=== PATIENT | female | born 1955 | race Caucasian/White ===

== ENCOUNTER 2020-05-26 18:31 | Emergency (ER) | payer OTHER, SELFPAY ==
--- NOTE | ~2020-05-26 | XR_ITS ---
EXAMINATION: XR knee RT min 4V EXAM DATE: 05/26/2020 19:17 INDICATION: right knee/patella pain, swelling s/p fall . Initial encounter. TECHNIQUE: Right knee frontal, crosstable lateral, orthogonal oblique projections for interpretation . [place] projection. There are no prior studies for comparison. FINDINGS: There is a moderate-sized right knee joint effusion. No definite lipomatous component to th is. There is large amount of swelling anterior aspect of the knee. No acute fracture line identified. There is mild patellofemoral compartment primary osteoarthritis. No radiopaque foreign bodies identi fied. IMPRESSION: Moderate right knee joint effusion without acute fracture line identified. Reviewed, dictated and finalized at location A. ANALYST IMPRESSION: Moderate right knee joint effusion without acute fracture line louis ntified.
[2020-05-26 18:58] VITALS: BP 163/60; PULSE 66; RESP 14; TEMP 36.5; O2SAT 97
[2020-05-26] MEDS: KETOROLAC (*BKC) 60 MG/2 ML VIAL IM (19:15)
--- NOTE | 2020-05-26 20:11 | ED.LOWEXIN ---
HPI - Extremity Injury (Lower) General Chief Complaint: Extremity Injury, Lower Stated Complaint: (both)Leg pain Time Seen by Provider: 05/26/20 19:00 Source: patient Mode of arrival: ambulatory Limitations: no limitations History of Present Illness HPI Narrative: Patient comes in after a fall on her knees. She has swelling to right knee, much greater than on left knee. Right knee appears bruised, and swollen. Pain is moderately severe and ongoing. Related Data Home Medications Medication Instructions Recorded Confirmed amlodipine 10 mg PO DAILY 05/26/20 05/26/20 atenolol 100 mg PO DAILY 05/26/20 05/26/20 atorvastatin 80 mg PO DAILY 05/26/20 05/26/20 losartan 100 mg PO DAILY 05/26/20 05/26/20 metformin 500 mg PO BID 05/26/20 05/26/20 Allergies Allergy/AdvReac Type Severity Reaction Status Date / Time Penicillins Allergy Unknown Verified 05/26/20 19:05 Review of Systems Constitutional: Constitutional: Reports no additional constitutional complaints Eyes: Eyes: Reports no additional eye complaints ENT: Reports system reviewed and no additional complaints, except as documented Cardiovascular: Cardiovascular: Reports no additional cardiovascular complaints Respiratory: Respiratory: Reports no additional respiratory complaints Gastrointestinal: Gastrointestinal: Reports no additional gastrointestinal complaints Genitourinary: Genitourinary: Reports no additional female genitourinary complaints Musculoskeletal: Musculoskeletal: Reports no additional musculoskeletal complaints Integumentary/Breasts: Skin/Breast: Reports system reviewed and no additional complaints, except as docu Neurologic: Reports system reviewed and no additional complaints, except as documented Psychiatric: Psychiatric: Reports no additional psychiatric complaints Endocrine: Endocrine: Reports no additional endocrine complaints Hematologic/Lymphatic: Hematologic/Lymphatic: Reports no additional hematologic/lymphatic complaints Allergic/Immunologic: Allergic/Immunologic: Reports no additional allergic/immunologic complaints PMFSH Past Medical History Medical History (Updated 05/27/20 @ 01:11 by Ignacio Burr MD) Diabetes HTN (hypertension) Hyperlipemia Exam Const: General: no acute distress Nutritional Appearance: well nourished Orientation/consciousness: patient oriented x3 HENMT: Head: normal to inspection Ears: TM abnormal Face and sinus: normal facial exam Eyes: General: appearance normal, both eyes and all related structures Conjunctivae: conjunctivae normal Neck: Neck: normal visual inspection Chest: Chest palpation & inspection: normal inspection of the chest Resp: Effort & Inspection: normal respiratory effort Cardio: Rate: regular rate Rhythm: regular rhythm Back/Spine/Pelvis: Back: no CVA tenderness Skin: General skin exam: normal color Neuro: General: patient oriented x3 and moves all extremities Extrem: General: normal to inspection Psych: Appearance: grossly normal Mental Status: mental status grossly normal Thought content: Yes Normal thought content present Course Course Emergency Course: She appears improved after ketorolac 60mg IM. Reviewed x ray with her. Vital Signs Vital signs: Vital Signs Temperature 36.5 C 05/26/20 18:58 Pulse Rate 66 05/26/20 18:58 Respiratory Rate 14 05/26/20 18:58 Blood Pressure 163/60 H 05/26/20 18:58 Pulse Oximetry 97 05/26/20 18:58 Temperature 36.5 C 05/26/20 18:58 Pulse Rate 66 05/26/20 18:58 Respiratory Rate 14 05/26/20 18:58 Blood Pressure 163/60 H 05/26/20 18:58 Pulse Oximetry 96 05/26/20 20:30 Discharge Plan Discharge Clinical Impression: Acute knee pain Patient Disposition: Home, Self-Care Condition: Stable Instructions: Antibiotic Form, Abrasion (ED) Additional Instructions: Follow up with primary care physician in a few days Prescriptions: New mupirocin 2 % ointment 1 caitie
[2020-05-26 20:30] VITALS: O2SAT 96
== END 2020-05-26 20:35 | disposition home or self-care (01) ==
PROVIDERS: Emergency Provider Emergency Medicine
DX: M25.561 Pain in right knee (principal)
CPT/HCPCS: 73564; 96372; 99283; J1885

== ENCOUNTER 2020-06-03 09:01 | Outpatient (CLI) | payer OTHER, SELFPAY ==
--- NOTE | ~2020-06-03 | US_ITS ---
EXAMINATION: US abdomen limited DATE: 06/03/2020 09:51 INDICATION: Unspecified cirrhosis of the liver TECHNIQUE: Multiple grayscale and Doppler ultrasound images of the abdomen were obtained. COMPARISON: None available FINDINGS: The head and body of the pancreas are normal. The pancreatic tail is obscured by bowel gas. The liver demonstrates increased echogenicity and coarse echotexture. There is mild nodularity of th e liver surface. Normal hepatopetal flow in the main portal vein. The gallbladder is normal with no a bnormal wall thickening, pericholecystic fluid or stones. The normal common bile duct measures 3 mm. There was no sonographic Walker sign. IMPRESSION: 1. Findings consistent with cirrhosis. Reviewed, dictated and finalized at location A. EXPORT OPERATIONS AGENT
--- NOTE | ~2020-06-03 | MM_ITS ---
EXAMINATION: MM screening [facility] BI w trevin HISTORY: Screening mammogram TECHNIQUE: Craniocaudal and mediolateral oblique 3-D tomosynthesis images were obtained and synthetic 2-D images were generated. CAD analysis was submitted and interpreted. COMPARISON: No prior mammogram is available for comparison at this institution. BREAST PARENCHYMAL COMPOSITION: There are scattered areas of fibroglandular density. FINDINGS: Scattered bilateral benign calcifications. There is no evidence of suspicious mass, calcifi cation, or architectural distortion to suggest malignancy in either breast. There has been no suspici ous interval change. IMPRESSION: 1. No mammographic evidence of malignancy. 2. Recommend routine screening mammography in one year. BI-RADS Category 2: Benign finding(s). Reviewed, dictated and finalized at location A. TENANCE SUPERVISOR 2ND SHIFT
[2020-06-03 09:17] LABS: Hematocrit 41.9 % (35.0-42.0); Hemoglobin 13.2 g/dL (11.7-13.8); Mean Corpuscular HGB Conc 31.5 g/dL (32.0-36.0); Mean Corpuscular Hemoglobin 27.1 pg (27.0-31.0); Mean Platelet Volume 9.9 fl (9.2-11.8); Platelet Count Result 149 K/mm3 (150-420); Red Blood Count 4.87 M/mm3 (4.20-5.40); Red Cell Distribution Width 14.9 % (11.6-14.4); White Blood Count 6.3 K/mm3 (4.8-10.8)
[2020-06-03 09:37] LABS: Hemoglobin A1C 6.4 % (<5.7)
[2020-06-03 10:02] LABS: Alanine Aminotransferase 38 U/L (14-59); Albumin Level 4.5 g/dL (3.4-5.0); Alkaline Phosphatase 111 U/L (46-116); Anion Gap 9 mmol/L (8-16); Aspartate Amino Transferase 27 U/L (15-37); Bilirubin,Total 0.6 mg/dL (0.00-1.00); Blood Urea Nitrogen 19 mg/dL (7-18); Calcium 9.4 mg/dL (8.5-10.1); Carbon Dioxide 27 mmol/L (21-32); Chloride 103 mmol/L (98-108); Cholesterol 232 mg/dL (0-200); Estimated Glomerular Filt Rate > 60; Glucose 114 mg/dL (70-99); HDL Direct 47 mg/dL (40-60); LDL Cholesterol Calculated 167 mg/dL (<130); Osmolality Calculated 291 mOsm/kg (285-295); Potassium 4.1 mmol/L (3.5-5.1); Sodium 139 mmol/L (136-145); Total Protein 7.7 g/dL (6.4-8.2); Triglycerides 90 mg/dL (0-150)
[2020-06-08 15:33] LABS: Alpha Fetoprotein Tumor Marker 2.6 ng/mL (<6.1)
== END 2020-06-03 09:02 | disposition home or self-care (01) ==
PROVIDERS: PCP Family Medicine; Visit Provider Family Medicine
DX: K74.60 Unspecified cirrhosis of liver (principal); I10 Essential (primary) hypertension; K21.9 Gastro-esophageal reflux disease without esophagitis; E11.9 Type 2 diabetes mellitus without complications; E78.5 Hyperlipidemia, unspecified; Z12.31 Encounter for screening mammogram for malignant neoplasm of breast
CPT/HCPCS: 36415; 76705; 77063; 77067; 80053; 80061; 82105; 83036; 85027

== ENCOUNTER 2020-07-07 08:40 | Outpatient (CLI) | payer OTHER, SELFPAY ==
[2020-07-11 11:31] LABS: Hepatitis A Antibody IgM Nonreactive; Hepatitis B Core Antibody Nonreactive (Nonreactive); Hepatitis B Surface Antigen Nonreactive (Nonreactive); Hepatitis C Signal to Cutoff 0.09 ratio (<1.00); Hepatitis C Virus Antibody Nonreactive (Nonreactive)
[2020-07-12 12:05] LABS: Ceruloplasmin 31 mg/dL (18-53)
== END 2020-07-07 08:41 | disposition home or self-care (01) ==
LOC: CHSLAB 08:46
PROVIDERS: PCP Family Medicine; Visit Provider Family Medicine
DX: K74.60 Unspecified cirrhosis of liver (principal)
CPT/HCPCS: 36415; 80074; 82104; 82390

== ENCOUNTER 2020-07-14 09:59 | Outpatient (CLI) | payer OTHER, SELFPAY ==
[2020-07-14 11:20] LABS: Iron 69 ug/dL (37-170)
[2020-07-14 11:30] LABS: Percent Iron Saturation 19 % (20-50)
[2020-07-18 08:27] LABS: Mitochondrial (M2) Ab (IgG) <=20.0 U (<=20.0)
[2020-07-20 11:44] LABS: Anti Nuclear Antibody Titer 1:40 (Negative)
== END 2020-07-14 10:00 | disposition home or self-care (01) ==
PROVIDERS: PCP Family Medicine; Visit Provider Nurse Practitioner Family
DX: K74.60 Unspecified cirrhosis of liver (principal)
CPT/HCPCS: 36415; 82728; 83520; 83540; 83550; 86038; 86039

== ENCOUNTER 2020-11-07 06:21 | Emergency (ER) | payer OTHER, SELFPAY ==
[2020-11-07] VITALS (7 sets, daily range): BP systolic 114–174; BP diastolic 55–72; PULSE 72–78; RESP 20; TEMP 36.7; O2SAT 87–98
--- NOTE | ~2020-11-07 | CT_ITS ---
EXAMINATION: CTA chest PE protocol DATE: 11/07/2020 08:13 INDICATION: Chest pain. TECHNIQUE: Computed tomography angiography (CTA) of the chest was performed with 100 mL Omnipaque-350 intravenous contrast timed to evaluate the pulmonary arteries. Coronal maximum intensity projection 3D-reconstructions were created by the technologist. Automated exposure control and iterative reconst ruction technique were employed. The dose-length product was 886.34 mGy-cm. COMPARISON: Chest single view 11/07/2020 FINDINGS: There are small pleural effusions. There are patchy airspace opacities and groundglass opac ities in all lobes. There is smooth septal thickening in the inferior lungs. Cardiomegaly is noted. T here are coronary artery calcifications. No pericardial effusion. There is no pulmonary embolus. Ther e is moderate thoracic spondylosis. IMPRESSION: 1. No pulmonary embolus. 2. Diffuse lung disease, likely a combination of moderate pulmonary edema and pneumonia. 3. Small pleural effusions. 4. Cardiomegaly. Reviewed, dictated and finalized at location A. IMPRESSION: 1. No pulmonary embolus. 2. Diffuse lung disease, likely a combination of moderate pulmonary edema and p neumonia. 3. Small pleural effusions. 4. Cardiomegaly.
--- NOTE | ~2020-11-07 | XR_ITS ---
EXAMINATION: XR chest 1V portable DATE: 11/07/2020 07:18 INDICATION: Chest pain. Dyspnea. TECHNIQUE: A single frontal view of the chest was obtained. COMPARISON: None. FINDINGS: Sensitivity is decreased by obesity. There are airspace opacities in the mid and lower lung zones. No pleural effusion or pneumothorax. Cardiac megaly is noted. IMPRESSION: 1. Airspace opacities in the mid and lower lung zones, consistent with atelectasis versus pneumonia. 2. Cardiomegaly. Reviewed, dictated and finalized at location A. IMPRESSION: 1. Airspace opacities in the mid and lower lung zones, consistent with atelecta sis versus pneumonia. 2. Cardiomegaly.
--- NOTE | 2020-11-07 06:24 | ECG_ITS ---
Measurements Intervals [place] Rate: 86 P: 91 CO: 212 QRS: 13 QRSD: 99 T: 75 QT: 380 QTc: 456 Interpretive Statements SINUS RHYTHM WITH FIRST DEGREE AV BLOCK NONSPECIFIC ST & T-WAVE ABNORMALITY- HIGH LATERAL LEADS BASELINE ARTIFACT- I, II, III, AVR, AVL, AVF ABNORMAL ECG Electronically Signed On 11-07-2020 15:11:24 CDT by Jalil Hayes D.O.
--- NOTE | 2020-11-07 06:34 | ED.CHESTPAIN ---
HPI - Chest Pain General Chief Complaint: Chest Pain Stated Complaint: Chest pain Time Seen by Provider: 11/07/20 06:25 Source: patient Mode of arrival: wheelchair Limitations: no limitations History of Present Illness HPI narrative: 65-year-old woman with history of hypertension, dyslipidemia, and type 2 diabetes comes in today complaining of shortness of breath and chest pain which started last night. Patient states that her symptoms got worse around 1:00 a.m. and she has been unable to sleep since. She states that the chest pain is accompanied by nausea, vomiting, sweating, dizziness, and shortness of breath. She denies syncope and denies history of heart or lung disease. She states that she has a chronic cough but has had no recent cold symptoms, productive cough, fever, abdominal pain. MD complaint: chest pain Onset (ago): hour(s) (6-8) Timing of current episode: constant and increasing Prior episodes: No Onset: during rest and awoke with symptoms Pain location: substernal Pain radiation: none Severity: moderate Quality: heaviness Relieving factors: nothing Exacerbating factors: nothing Associated symptoms: nausea, vomiting, diaphoresis and dyspnea Treatment prior to arrival: none Risk Factors Coronary artery disease risk factors: diabetes, hyperlipidemia, hypertension and family history of CAD before age 50 Related Data Home Medications Medication Instructions Recorded Confirmed aspirin 81 mg tablet,delayed 81 mg PO DAILY 11/12/20 release furosemide 40 mg tablet 40 mg PO QAM 11/12/20 losartan 50 mg tablet 50 mg PO DAILY 11/12/20 mupirocin 2 % topical ointment 1 applic TOPICAL BID 11/12/20 Allergies Allergy/AdvReac Type Severity Reaction Status Date / Time Penicillins Allergy Unknown Verified 09/04/20 06:30 Review of Systems Constitutional: Constitutional: Denies chills and Denies fever(s) Eyes: Eyes: Denies change in vision and Denies photophobia ENT: Denies nasal congestion and Denies sore throat Cardiovascular: Cardiovascular: Reports as per HPI, Reports chest pain, Denies rapid heart rate, Reports radiating jaw, neck or arm pain (neck and head) and Denies slow heart rate Respiratory: Respiratory: Reports as per HPI, Reports cough, Denies dyspnea and Denies wheezing Gastrointestinal: Gastrointestinal: Denies abdominal pain, Denies diarrhea, Reports nausea and Reports vomiting Genitourinary: Genitourinary: Denies nocturia and Denies dysuria Musculoskeletal: Musculoskeletal: Denies back pain, Denies arthralgias and Denies joint swelling Integumentary/Breasts: Skin/Breast: Denies pruritus, Denies erythema and Denies rash Neurologic: Denies vertigo, Reports dizziness, Denies syncope, Denies focal weakness and Reports weakness Hematologic/Lymphatic: Hematologic/Lymphatic: Denies easy bleeding and Denies easy bruising Allergic/Immunologic: Allergic/Immunologic: Denies lip swelling and Denies throat swelling [facility] Past Medical History Medical History (Updated 11/08/20 @ 00:01 by Shorty Gomez) Diabetes DM2 (diabetes mellitus, type 2) GERD (gastroesophageal reflux disease) HTN (hypertension) Hyperlipemia Hyperlipidemia Hypertension Liver cirrhosis Obesity (BMI 30-39.9) Stress incontinence Surgical History Surgical History (Updated 11/07/20 @ 09:38 by Ignacio Burr MD) History of bladder surgery No history of previous surgery Family History Family History Mother CAD (coronary artery disease) Diabetes mellitus Father Diabetes mellitus Sibling CAD (coronary artery disease) Heart disease Hypertension Social History Social History Smoking status: Never smoker Substance use: never Exam Const: General: alert Nutritional Appearance: obese Orientation/consciousness: patient oriented x3 Limitations: no limitations Other: moderate acute distress. HENMT: Head
[2020-11-07] MEDS: ASPIRIN 81 MG CHEWABLE TABLET 324 MG PO (06:39)
[2020-11-07] MEDS: MORPHINE SULFATE (*CRX) 2 MG/ML INJ IV PUSH (06:40)
[2020-11-07] MEDS: ONDANSETRON INJ 4 MG/2 ML VIAL IV PUSH (06:40)
[2020-11-07] MEDS: NITROGLYCERIN SL 0.4 MG TABLET SUBLINGUAL (06:43)
[2020-11-07 06:47] LABS: Basophils Absolute Auto 0.03 K/mm3 (0.00-0.10); Basophils Percent Auto 0.5 % (0.0-1.0); Eosinophils Absolute Auto 0.09 K/mm3 (0.02-0.50); Eosinophils Percent Auto 1.6 % (1.0-6.0); Hematocrit 38.3 % (35.0-42.0); Hemoglobin 11.9 g/dL (11.7-13.8); Immature Granulocyte Absolute 0.03 K/mm3 (0.00-0.00); Immature Granulocyte Percent A 0.5 % (0.0-0.0); Lymphocytes Absolute Auto 0.85 K/mm3 (1.10-4.50); Lymphocytes Percent Auto 14.8 % (18.0-42.0); Mean Corpuscular HGB Conc 31.1 g/dL (32.0-36.0); Mean Corpuscular Volume 86.8 fL (78.0-102.0); Mean Platelet Volume 10.3 fl (9.2-11.8); Monocytes Absolute Auto 0.32 K/mm3 (0.10-0.90); Monocytes Percent Auto 5.6 % (2.0-11.0); Neutrophils Absolute Auto 4.4 K/mm3 (1.7-7.2); Platelet Count Result 136 K/mm3 (150-420); Red Blood Count 4.41 M/mm3 (4.20-5.40); Red Cell Distribution Width 15.6 % (11.6-14.4); White Blood Count 5.7 K/mm3 (4.8-10.8)
[2020-11-07 07:02] LABS: INR 1.1; Partial Thromboplastin Time 24.9 SEC (23.90-30.70); Prothrombin Time 11.4 Seconds (9.50-12.10)
[2020-11-07 07:04] LABS: D Dimer 2.36 mg/L (0.19-0.50)
[2020-11-07 07:08] LABS: Alanine Aminotransferase 23 U/L (14-59); Albumin Level 3.6 g/dL (3.4-5.0); Alkaline Phosphatase 96 U/L (46-116); Anion Gap 14 mmol/L (8-16); Aspartate Amino Transferase 16 U/L (15-37); Bilirubin,Total 0.6 mg/dL (0.00-1.00); Blood Urea Nitrogen 13 mg/dL (7-18); Calcium 8.8 mg/dL (8.5-10.1); Carbon Dioxide 24 mmol/L (21-32); Chloride 103 mmol/L (98-108); Estimated CRCL calculation 53 ml/min; Estimated Glomerular Filt Rate 60; Glucose 145 mg/dL (70-99); NT Pro B Type Natriuretic Pept 787 pg/mL (0-125); Osmolality Calculated 295 mOsm/kg (285-295); Potassium 3.7 mmol/L (3.5-5.1); Sodium 141 mmol/L (136-145); Total Protein 7.7 g/dL (6.4-8.2)
[2020-11-07 07:09] LABS: Troponin I 11.8 ng/L (0.00-60.4)
--- NOTE | 2020-11-07 08:04 | ED.CHESTPAIN ---
HPI - Chest Pain General Chief Complaint: Chest Pain Stated Complaint: Chest pain Time Seen by Provider: 11/07/20 06:25 Source: patient Mode of arrival: wheelchair Limitations: no limitations History of Present Illness HPI narrative: Patient was initially seen by Dr Lay at 6:25, now seen by me at 7:20. She comes in stating she had felt bloated last pm. She went top her brothers house and played some games and then came home. She went to bed and was short of breath several times last night, and had a feeling of chest pressure throughout her chest. This started about 1 am, she noticed it when she got up to void. Shortness of breath and chest heaviness continued, and she only noted relief after coming in and getting nitroglycerin here. Chest heaviness (like a weight on her chest) and shortness of breath was moderately severe, ongoing since 1am, with both resolving just after 7 when she got nitroglycerin and aspirin. She had an episode of nausea and emesis that happened just before coming in. Nausea resolved after medications here. She felt presyncopal when she was having chest discomfort. This resolved after she came in and was medicated with nitroglycerin. She says she frequently has nausea after medicines in the morning. She has been diabetic she thinks for about 10 years. MD complaint: chest pain and chest heaviness Pertinent past history: other (DM, HL, HTN) Onset (ago): hour(s) Timing of current episode: constant Prior episodes: No Onset: during rest Pain location: substernal Pain radiation: neck Severity: moderate Quality: heaviness Relieving factors: nothing Exacerbating factors: nothing Associated symptoms: nausea, vomiting, diaphoresis and dyspnea Risk Factors Coronary artery disease risk factors: diabetes, hyperlipidemia and hypertension Related Data Allergies Allergy/AdvReac Type Severity Reaction Status Date / Time Penicillins Allergy Unknown Verified 09/04/20 06:30 Review of Systems Constitutional: Constitutional: Reports no additional constitutional complaints Eyes: Eyes: Reports no additional eye complaints ENT: Reports system reviewed and no additional complaints, except as documented Cardiovascular: Cardiovascular: Reports no additional cardiovascular complaints Respiratory: Respiratory: Reports no additional respiratory complaints Gastrointestinal: Gastrointestinal: Reports no additional gastrointestinal complaints Genitourinary: Genitourinary: Reports no additional female genitourinary complaints Musculoskeletal: Musculoskeletal: Reports no additional musculoskeletal complaints Integumentary/Breasts: Skin/Breast: Reports system reviewed and no additional complaints, except as docu Neurologic: Reports system reviewed and no additional complaints, except as documented Psychiatric: Psychiatric: Reports no additional psychiatric complaints Endocrine: Endocrine: Reports no additional endocrine complaints Hematologic/Lymphatic: Hematologic/Lymphatic: Reports no additional hematologic/lymphatic complaints Allergic/Immunologic: Allergic/Immunologic: Reports no additional allergic/immunologic complaints [facility] Past Medical History Medical History (Updated 11/07/20 @ 09:38 by Ignacio Burr MD) Diabetes DM2 (diabetes mellitus, type 2) GERD (gastroesophageal reflux disease) HTN (hypertension) Hyperlipemia Hyperlipidemia Hypertension Liver cirrhosis Obesity (BMI 30-39.9) Stress incontinence Surgical History Surgical History (Updated 11/07/20 @ 09:38 by Ignacio Burr MD) History of bladder surgery No history of previous surgery Family History Family History Mother CAD (coronary artery disease) Diabetes mellitus Father Diabetes mellitus Sibling CAD (coronary artery disease) Heart disease Hypertension Social History Social History Smoking status: Never smoker [employer]
[2020-11-07 08:25] LABS: Base Excess ABG -3.2 mmol/L (0-2); HCO3 ABG 21.7 mmol/L (23-29); Oxygen Content ABG 15.6 %vol (16.0-22.0); Oxygen Saturation ABG 93.2 % (95-97); PCO2 ABG 38.7 mmHg (35-45); PO2 ABG 71.4 mmHg (75-85); Total Hemoglobin 11.9 g/dL; pH ABG 7.37 (7.35-7.45)
[2020-11-07 08:26] LABS: Device NASAL CANNULA; Modified Allen's Test Pass; Site Drawn LEFT RADIAL
--- NOTE | 2020-11-07 08:27 | PC.NURSE ---
PT CARE IS ASSUMED. PT STATES SHE IS BREATHING BETTER SINCE GETTING NITRO AND MORPHINE. PT IN NO RESPIRATORY DISTRESS AT THIS TIME. LUNG SOUNDS DIMINISHED IN THE BASES BUT OTHERWISE CLEAR.
[2020-11-07 08:30] LABS: Magnesium 1.2 mg/dL (1.8-2.4)
--- NOTE | 2020-11-07 08:50 | PC.NURSE ---
[facility] CALLED FOR POSSIBLE TRANSFER
[2020-11-07] MEDS: POTASSIUM BICARBONATE 25 MEQ TABEF 50 MEQ PO (08:57)
[2020-11-07] MEDS: FUROSEMIDE INJ 40 MG/4 ML VIAL 20 MG IV PUSH (10:02)
[2020-11-07 10:21] LABS: SARS-CoV-2 Ag Negative (Negative)
== END 2020-11-07 12:04 | disposition short-term general hospital (02) ==
PROVIDERS: Emergency Medicine; Emergency Provider Emergency Medicine; PCP Family Medicine
DX: R07.2 Precordial pain (principal); R06.02 Shortness of breath; Z20.822 Contact with and (suspected) exposure to COVID-19
CPT/HCPCS: 36415; 36600; 71045; 71275; 80053; 82805; 83735; 83880; 84484; 85025; 85380; 85610; 85730; 87426; 93005; 96365; 96375; 99285; A9270; C9803; J1940; J2270; J2405; J3475; Q9967

== ENCOUNTER 2021-03-12 13:15 | Outpatient (CLI) | payer OTHER, SELFPAY ==
--- NOTE | ~2021-03-12 | XR_ITS ---
XR hip LT min 2V DATE: 03/12/2021 13:43 INDICATION: Left hip pain TECHNIQUE: AP, lateral and crosstable lateral views of left hip COMPARISON: None FINDINGS: There is enthesopathy of the left greater trochanter, proximal femur. Normal alignment at the pubic symphysis, left sacroiliac joint and left hip joint. No fracture or dislocation, avascular necrosis or bone destruction of the left hip. Degenerative disc disease and included L5-S1. There are some calcifications lateral to the left hip. IMPRESSION: Nonspecific left hip soft tissue calcifications Enthesopathy and greater trochanter of proximal left femur No fracture or dislocation Reviewed, dictated and finalized at location B.
--- NOTE | ~2021-03-12 | XR_ITS ---
XR_CERV2-3V_CR DATE: 03/12/2021 13:43 INDICATION: Neck pain TECHNIQUE: AP, open-mouth, lateral and swimmer views COMPARISON: None FINDINGS: There is diffuse osteopenia. There is levoscoliosis of the cervical and upper thoracic spine. No fracture or dislocation or locked facet or prevertebral soft tissue swelling. C1 and C2 are normal ly aligned and the odontoid process is intact. There is mild degenerative disc disease and moderate degenerative spurring of the cervical spine. IMPRESSION: Mild cervical spondylosis; no fracture or dislocation Levoscoliosis Diffuse osteopenia Reviewed, dictated and finalized at Location A. Reviewed, dictated and finalized at location B.
== END 2021-03-12 13:16 | disposition home or self-care (01) ==
PROVIDERS: PCP Family Medicine; Visit Provider Family Medicine
DX: M54.2 Cervicalgia (principal); M25.552 Pain in left hip; M85.88 Other specified disorders of bone density and structure, other site; M47.812 Spondylosis without myelopathy or radiculopathy, cervical region
CPT/HCPCS: 72040; 73502

== ENCOUNTER 2021-03-17 09:39 | Outpatient (CLI) | payer OTHER, SELFPAY ==
--- NOTE | ~2021-03-17 | MR_ITS ---
EXAMINATION: MR brain/brain stem wo con DATE: 03/17/2021 11:43 INDICATION: Headache. TECHNIQUE: Magnetic resonance imaging (MRI) of the brain and brainstem was performed without intraven ous contrast. Sequences included sagittal and axial T1-weighted FSE, axial diffusion-weighted FS EPI, axial T2*-weighted GRE, axial T2-weighted FLAIR Propeller, and axial T2-weighted Propeller. Apparent diffusion coefficient (ADC) maps were created. COMPARISON: None. FINDINGS: There is no intracranial hemorrhage, acute infarction, or abnormal intracranial mass lesion . There are scattered areas of nonspecific increased T2-weighted signal intensity in the cerebral whi te matter. The ventricles are normal in size. There is mild mucosal thickening in the paranasal sinus es. The mastoid air cells are normal. The orbits are normal. IMPRESSION: 1. Mild nonspecific cerebral white matter disease, which likely represents chronic small vessel ische dayday disease. Reviewed, dictated and finalized at location A. IMPRESSION: 1. Mild nonspecific cerebral white matter disease, which likely represents demolitionist amy small vessel ischemic disease.
--- NOTE | ~2021-03-17 | US_ITS ---
EXAMINATION: US abdomen limited EXAM DATE: 03/17/2021 10:04 INDICATION: K74.60 - Unspecified cirrhosis of liver. TECHNIQUE: Multiple grayscale and Doppler images of the abdomen right upper quadrant were obtained (b y a technologist who performed the scan) and subsequently reviewed. Comparison is made to prior exami nation from 06/03/2020. FINDINGS: The pancreatic head and body are normal in appearance. The pancreatic tail is not visualized. Some liver contour undulations and mildly heterogeneous echotexture consistent with cirrhosis. There are no focal liver lesions identified. There is no evidence of intrahepatic biliary duct dilation. Por misty venous flow was seen in the hepatopedal, normal direction and has normal Doppler waveform. No ri ght-sided hydronephrosis. Common bile duct measures 6 mm, which is normal. The gallbladder wall is normal in thickness, with ex pected amount of distention. No sonographic evidence of pericholecystic fluid. There is no cholelit hiases. Technologist performing exam reports patient did not demonstrate sonographic Walker's sign. Please note that this sign is less reliable in patients who have received pain medication. IMPRESSION: Sonographic evidence of cirrhosis. Reviewed, dictated and finalized at location A.
== END 2021-03-17 09:40 | disposition home or self-care (01) ==
LOC: CHSIMG 09:41
PROVIDERS: PCP Family Medicine; Visit Provider Family Medicine
DX: R51.9 Headache, unspecified (principal); K74.60 Unspecified cirrhosis of liver
CPT/HCPCS: 70551; 76705

== ENCOUNTER 2021-07-27 09:09 | Outpatient (CLI) | payer OTHER, SELFPAY ==
--- NOTE | ~2021-07-27 | XR_ITS ---
EXAMINATION: XR knee RT 3V DATE: 07/27/2021 09:37 INDICATION: Right knee pain TECHNIQUE: Three views of the right knee were obtained. COMPARISON: 05/26/2020 FINDINGS: Alignment is normal. No fracture or osteochondral lesion. There is mild narrowing in the me dial and lateral compartments and moderate lateral patellofemoral compartment narrowing. No joint eff usion/synovitis. Soft tissues are unremarkable. IMPRESSION: 1. Unchanged tricompartmental osteoarthritis, moderate in the lateral patellofemoral compartment. Reviewed, dictated and finalized at location A. ICAL MOLECULAR GENETICIST IMPRESSION: 1. Unchanged tricompartmental osteoarthritis, moderate in the lateral patellofe moral compartment.
--- NOTE | ~2021-07-27 | XR_ITS ---
XR ribs LT 2V w CXR 2V DATE: 07/27/2021 09:38 INDICATION: Fall one week ago. Left rib pain under breast TECHNIQUE: PA and lateral chest. 4 views of the left ribs. COMPARISON: 11/07/2020 CTA chest 11/07/2020 portable AP chest FINDINGS: There is mild cardiomegaly with transverse cardiothoracic ratio 15/28.6. There is aortic ar ch calcification. No hilar or mediastinal enlargement. No pulmonary infiltrate or consolidation, pleu ral effusion or pulmonary vascular congestion or pneumothorax. Diffuse osteopenia. IMPRESSION: Mild cardiomegaly No active pulmonary disease Reviewed, dictated and finalized at location B. UET SERVER
== END 2021-07-27 09:10 | disposition home or self-care (01) ==
LOC: CHSLAB 09:14
PROVIDERS: PCP Family Medicine; Visit Provider Family Medicine
DX: M25.561 Pain in right knee (principal); R07.81 Pleurodynia
CPT/HCPCS: 71046; 71100; 73562

== ENCOUNTER 2021-10-21 12:00 | Outpatient (CLI) | payer OTHER, SELFPAY ==
--- NOTE | ~2021-10-21 | XR_ITS ---
XR knee LT 2V 10/21/2021 13:11 Indication: Left knee pain. Procedure: 2 views left knee Comparison: No prior studies for comparison. Findings: There is mild osteoarthritis of the left knee. No fracture, subluxation or dislocation. No significant joint effusion. Osteopenia. No foreign bodies. Impression: 1: Mild osteoarthritis of the left knee. Reviewed, dictated and finalized at location A. Impression: 1: Mild osteoarthritis of the left knee.
--- NOTE | ~2021-10-21 | XR_ITS ---
XR knee RT 2V 10/21/2021 13:10 Indication: Chronic right knee pain Procedure: 2 views right knee Comparison: 07/27/2021 Findings: There is mild osteoarthritis of the right knee. No fracture, subluxation or dislocation. No joint effusion. No foreign body. Impression: 1: Stable mild osteoarthritis of the right knee. Reviewed, dictated and finalized at location A. Impression: 1: Stable mild osteoarthritis of the right knee.
--- NOTE | ~2021-10-21 | MM_ITS ---
EXAMINATION: MM screening [facility] BI w trevin HISTORY: Screening TECHNIQUE: Craniocaudal and mediolateral oblique 3-D tomosynthesis images were obtained and synthetic 2-D images were generated. CAD analysis was submitted and interpreted. COMPARISON: Comparison to multiple prior studies sequentially, with oldest reviewed study dated 05/13. BREAST PARENCHYMAL COMPOSITION: There are scattered areas of fibroglandular density. FINDINGS: There is no evidence of suspicious mass, calcification, or architectural distortion to sugg est malignancy in either breast. There has been no suspicious interval change. IMPRESSION: 1. No mammographic evidence of malignancy. 2. Recommend routine screening mammography in one year. BI-RADS Category 1: Negative Reviewed, dictated and finalized at location A.
--- NOTE | ~2021-10-21 | XR_ITS ---
XR hip RT min 2V, XR hip LT min 2V 10/21/2021 13:11 (accession [id number]), 10/21/2021 13:10 (accession [id number]) Indication: Chronic hip pain Procedure: 2 views of each hip Comparison: No prior studies for comparison. Findings: There is mild bilateral osteoarthritis of the hips. No acute fracture or traumatic malalign ment. 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 There are femoral vascular calcificati ons. Osteopenia. Impression: 1: Mild osteoarthritis of the hips. Reviewed, dictated and finalized at location A. Impression: 1: Mild osteoarthritis of the hips. Impression: 1: Mild osteoarthritis of the hips.
[2021-10-21 12:26] LABS: Basophils Absolute Auto 0.04 K/mm3 (0.00-0.10); Basophils Percent Auto 0.8 % (0.0-1.0); Eosinophils Percent Auto 2.1 % (1.0-6.0); Hematocrit 37.7 % (35.0-42.0); Hemoglobin 11.7 g/dL (11.7-13.8); Immature Granulocyte Absolute 0.01 K/mm3 (0.00-0.00); Immature Granulocyte Percent A 0.2 % (0.0-0.0); Lymphocytes Percent Auto 27.1 % (18.0-42.0); Mean Corpuscular Hemoglobin 28.1 pg (27.0-31.0); Mean Corpuscular Volume 90.4 fL (78.0-102.0); Mean Platelet Volume 10.5 fl (9.2-11.8); Monocytes Absolute Auto 0.24 K/mm3 (0.10-0.90); Neutrophils Absolute Auto 3.1 K/mm3 (1.7-7.2); Neutrophils Percent Auto 64.8 % (50.0-70.0); Platelet Count Result 127 K/mm3 (150-420); Red Blood Count 4.17 M/mm3 (4.20-5.40); Red Cell Distribution Width 14.6 % (11.6-14.4); White Blood Count 4.8 K/mm3 (4.8-10.8)
[2021-10-21 13:17] LABS: Alanine Aminotransferase 27 U/L (14-59); Albumin Level 4.1 g/dL (3.4-5.0); Alkaline Phosphatase 88 U/L (46-116); Anion Gap 6 mmol/L (8-16); Aspartate Amino Transferase 28 U/L (15-37); Bilirubin,Total 0.3 mg/dL (0.00-1.00); Blood Urea Nitrogen 18 mg/dL (7-18); Calcium 9.5 mg/dL (8.5-10.1); Carbon Dioxide 27 mmol/L (21-32); Chloride 104 mmol/L (98-108); Cholesterol 236 mg/dL (0-200); Estimated Glomerular Filt Rate 46; Glucose 122 mg/dL (70-99); HDL Direct 43 mg/dL (40-60); LDL Cholesterol Calculated 166 mg/dL (<130); Osmolality Calculated 286 mOsm/kg (285-295); Potassium 4.5 mmol/L (3.5-5.1); Sodium 137 mmol/L (136-145); Total Protein 7.7 g/dL (6.4-8.2); Triglycerides 135 mg/dL (0-150)
== END 2021-10-21 12:01 | disposition home or self-care (01) ==
LOC: CHSLAB 12:11
PROVIDERS: PCP Family Medicine; Visit Provider Nurse Practitioner Family
DX: E11.9 Type 2 diabetes mellitus without complications (principal); E78.00 Pure hypercholesterolemia, unspecified; I10 Essential (primary) hypertension; M25.561 Pain in right knee; M25.562 Pain in left knee; M25.551 Pain in right hip; M25.552 Pain in left hip; Z12.31 Encounter for screening mammogram for malignant neoplasm of breast
CPT/HCPCS: 36415; 73502; 73560; 77063; 77067; 80053; 80061; 85025

== ENCOUNTER 2021-12-20 14:52 | Outpatient (CLI) | payer OTHER, SELFPAY ==
[2021-12-20 15:10] LABS: Basophils Absolute Auto 0.02 K/mm3 (0.00-0.10); Basophils Percent Auto 0.4 % (0.0-1.0); Eosinophils Percent Auto 1.9 % (1.0-6.0); Hematocrit 37.4 % (35.0-42.0); Hemoglobin 11.9 g/dL (11.7-13.8); Immature Granulocyte Absolute 0.01 K/mm3 (0.00-0.00); Immature Granulocyte Percent A 0.2 % (0.0-0.0); Immature Platelet Fraction Pct 3.4 % (1.0-7.0); Lymphocytes Absolute Auto 0.68 K/mm3 (1.10-4.50); Lymphocytes Percent Auto 13.1 % (18.0-42.0); Mean Corpuscular HGB Conc 31.8 g/dL (32.0-36.0); Mean Corpuscular Hemoglobin 28.7 pg (27.0-31.0); Mean Corpuscular Volume 90.3 fL (78.0-102.0); Mean Platelet Volume 10.5 fl (9.2-11.8); Monocytes Absolute Auto 0.33 K/mm3 (0.10-0.90); Monocytes Percent Auto 6.4 % (2.0-11.0); Platelet Count Result 118 K/mm3 (150-420); Red Blood Count 4.14 M/mm3 (4.20-5.40); Red Cell Distribution Width 15.4 % (11.6-14.4); White Blood Count 5.2 K/mm3 (4.8-10.8)
[2021-12-20 15:24] LABS: Alanine Aminotransferase 85 U/L (14-59); Albumin Level 3.4 g/dL (3.4-5.0); Alkaline Phosphatase 141 U/L (46-116); Amylase 44 U/L (25-115); Anion Gap 9 mmol/L (8-16); Aspartate Amino Transferase 39 U/L (15-37); Bilirubin,Total 0.7 mg/dL (0.00-1.00); Blood Urea Nitrogen 24 mg/dL (7-18); Calcium 10.2 mg/dL (8.5-10.1); Carbon Dioxide 23 mmol/L (21-32); Chloride 102 mmol/L (98-108); Estimated Glomerular Filt Rate 39; Glucose 127 mg/dL (70-99); Lipase 133 U/L (73-393); Osmolality Calculated 284 mOsm/kg (285-295); Potassium 4.6 mmol/L (3.5-5.1); Sodium 134 mmol/L (136-145); Total Protein 7.7 g/dL (6.4-8.2)
[2021-12-22 17:21] LABS: Vitamin D 25 Hydroxy 34 ng/mL (30-100)
== END 2021-12-20 14:53 | disposition home or self-care (01) ==
LOC: CHSLAB 14:54
PROVIDERS: PCP Nurse Practitioner Family; Visit Provider Nurse Practitioner Family
DX: R10.9 Unspecified abdominal pain (principal); Z79.899 Other long term (current) drug therapy
CPT/HCPCS: 36415; 80053; 82150; 82306; 83690; 83735; 85025; 85055